=== PATIENT | male | born 1980 | race Two or more races ===

== ENCOUNTER 2020-03-15 15:12 | Emergency (ER) | payer SELFPAY ==
[2020-03-15] MEDS ORDERED: oxyCODONE 5 MG Tab PO ONE (15:16)
[2020-03-15] MEDS ORDERED: Diphtheria,Pertussis(Acell),Tetanus Vaccine 0.5 ML Syringe IM ONE (15:16)
[2020-03-15] MEDS ORDERED: Acetaminophen 500 MG Tab PO ONE (15:16)
[2020-03-15] MEDS ORDERED: Meropenem 1 GM in Sodium Chloride 0.9% 100 ML IV ONE (15:20)
[2020-03-15] MEDS ORDERED: Diphtheria,Pertussis(Acell),Tetanus Vaccine 0.5 ML Syringe ONE (15:20)
--- NOTE | 2020-03-15 15:25 | EDM.PDOC ---
ED HPI GENERAL MEDICAL PROBLEM - General Chief Complaint: Laceration Stated Complaint: SHOT IN LEG WITH NAIL GUN Time Seen by Provider: 03/15/20 15:16 Source of Information: Reports: Patient, Old Records History Limitations: Reports: No Limitations - History of Present Illness INITIAL COMMENTS - FREE TEXT/NARRATIVE: This is a very pleasant 39-year-old male with no past medical history presenting with a puncture injury to the right leg. Approximately 30 minutes prior to arrival, the patient was utilizing a nail gun when he accidentally shot himself in the right anterior leg with a nail. He was able to remove the nail intact. He denies any other injuries. Tetanus immunization status is not up-to-date. No other complaints or injuries. Past medical history: Reviewed, no additional pertinent history. Surgical history: Reviewed in system, no additional pertinent history. Social history: Reviewed in system, no additional pertinent history. Family history: Reviewed in system, no additional pertinent history. PHYSICAL EXAM Vital signs reviewed. Nursing notes reviewed. Constitutional: Awake, alert, non-distressed. Head: Normocephalic, atraumatic. Eyes: EOMI, conjunctiva normal, no discharge, no scleral icterus. Ears, Nose, Throat: External ears and nose normal, moist oral mucosa. Cardiovascular: 2+ right DP and PT pulses, capillary refill less than 2 seconds in the right foot. Pulmonary: normal work of breathing, no accessory muscle use. Abdomen/GI: Soft, nontender, nondistended, no guarding or rigidity, no masses. Musculoskeletal: No deformities. There are 2 puncture wounds to the anterior surface of the right leg, the patient states that the nail was entering 1 of these wounds and exiting the other. Minimal amount of bleeding. Integumentary: Appropriate color for ethnicity, warm, dry, no pallor or jaundice, no rash. Neurologic: Alert, answering questions appropriately, normal speech, no facial droop, moving all extremities well. Sensation intact to light touch in the right foot. Psychiatric: Appropriate mood and affect, normal thought process. This patient was seen and evaluated during the 2019 SARS-CoV-2 novel coronavirus pandemic period. Community viral transmission is ongoing at time of this encounter and the emergency department is operating under pandemic response procedures. Right Leg Pain Score (Numeric/FACES): 6 - Related Data Allergies Allergy/AdvReac Type Severity Reaction Status Date / Time Penicillins Allergy Hives Verified 03/15/20 15:16 Home Meds: Home Meds Acetaminophen [Acetaminophen Extra Strength] 500 - 1,000 mg PO Q6H PRN #30 tablet 03/15/20 [Rx] Doxycycline Hyclate 100 mg PO BID 10 Days #20 tablet. 03/15/20 [Rx] Ibuprofen 400 mg PO Q6H PRN #30 tablet 03/15/20 [Rx] Past Medical History HEENT History: Reports: None Cardiovascular History: Reports: None Respiratory History: Reports: None Gastrointestinal History: Reports: None Genitourinary History: Reports: None Musculoskeletal History: Reports: Other (See Below) Other Musculoskeletal History: broken right tibia Neurological History: Reports: None Psychiatric History: Reports: None Endocrine/Metabolic History: Reports: None Hematologic History: Reports: None Immunologic History: Reports: None Oncologic (Cancer) History: Reports: None Dermatologic History: Reports: None - Past Surgical History Head Surgeries/Procedures: Reports: None HEENT Surgical History: Reports: None Cardiovascular Surgical History: Reports: None Respiratory Surgical History: Reports: None GI Surgical History: Reports: None Male Surgical History: Reports: None Endocrine Surgical History: Reports: None Neurological Surgical History: Reports: None Musculoskeletal Surgical History: Reports: None Oncologic Surgical History: Reports: None Dermatological Surgical History: Reports: None Social & Family History - Family History Family Medical History: No Pertinent Family History - Caffeine Use Caffeine Use: Reports: Coffee ED ROS GENERAL - Review of Systems Review Of Systems: See Below ED EXAM, SKIN/RASH Exam: See Below Course - Vital Signs Text/Narrative:: 39-year-old male presenting with a nail injury to the right lower leg. Neurovascularly intact in the right lower extremity. IV access ordered along with acetaminophen and oxycodone, tetanus booster, x-rays of the right lower leg. We will plan for copious irrigation and a loading dose of IV meropenem given penicillin allergy and need for pseudomonal coverage. Tetanus booster was given and the wound was copiously irrigated with pressure. The patient received 1 g of IV meropenem. We obtained x-rays of the right tibia and fibula, which were concerning for a possible fracture of the anterior diaphysis of the right tibia. Given the presence of the wound, I am concerned that this could be an open fracture so we decided to consult orthopedic surgery. At 4:16 PM I discussed the case with the on-call orthopedic surgeon Dr. Hudson. I discussed my concerns for a possible open fracture of the diaphysis of the right tibia and the mechanism of injury. I reiterated that we had already performed copious irrigation and were giving IV antibiotics. I did discuss whether this would need possible washout in the OR given that they could be an open fracture. Dr. Hudson does not believe the patient needs to go for a washout at this point and recommends bandaging, oral antibiotics (doxycycline), walking boot, crutches, and follow-up in the clinic with him in 2 days time on 03/17/20. The wound was bandaged without closure due to risk of infection (deep puncture injury). Patient is stable to discharge home. Given walking boot and crutches. We will give him instructions about how to change bandaging and we will prescribe him a 10-day course of doxycycline for prophylaxis (patient has a penicillin allergy so we avoided cephalosporins), also sent prescriptions for Tylenol and Motrin. Patient will follow up with the orthopedic surgery clinic in [address] Hudson. Strict emergency department return precautions were provided, patient indicated understanding. All questions were answered prior to departure. Discharged in good condition. DME orders: Right walking boot and crutches. Indication: Right tibial fracture. Duration: 1 month. Last Recorded V/S: Last Vital Signs Temp 36.6 C 03/15/20 15:15 Pulse 80 03/15/20 16:34 Resp 20 03/15/20 16:34 BP 148/29 H 03/15/20 16:34 Pulse Ox 98 03/15/20 16:34 - Orders/Labs/Meds Orders: Active Orders 24 hr Category Date Time Status Vaccines to be Administered [RC] PER UNIT ROUTINE Care 03/15/20 15:16 Active Sodium Chloride 0.9% [Saline Flush] Med 03/15/20 15:26 Active 10 ml FLUSH ASDIRECTED PRN Sodium Chloride 0.9% [Saline Flush] Med 03/15/20 15:26 Active 2.5 ml FLUSH ASDIRECTED PRN DME for Discharge [COMM] Stat Oth 03/15/20 16:18 Ordered Saline Lock Insert [OM.PC] Stat Oth 03/15/20 15:26 Ordered Medication Orders Sodium Chloride (Saline Flush) 10 ml FLUSH ASDIRECTED PRN PRN Reason: Keep Vein Open Last Admin: 03/15/20 15:33 Dose: 10 ml Documented by: ALBERTO Sodium Chloride (Saline Flush) 2.5 ml FLUSH ASDIRECTED PRN PRN Reason: Keep Vein Open Last Admin: 03/15/20 15:33 Dose: 2.5 ml Documented by: ALBERTO Meds: Medications Generic Name Dose Route Start Last Admin Trade Name Freq PRN Reason Stop Dose Admin Sodium Chloride 10 ml 03/15/20 15:26 03/15/20 15:33 Saline Flush FLUSH 10 ml ASDIRECTED PRN Administration Keep Vein Open Sodium Chloride 2.5 ml 03/15/20 15:26 03/15/20 15:33 Saline Flush FLUSH 2.5 ml ASDIRECTED PRN Administration Keep Vein Open Discontinued Medications Generic Name Dose Route Start Last Admin Trade Name Freq PRN Reason Stop Dose Admin Acetaminophen 1,000 mg 03/15/20 15:16 03/15/20 15:21 Tylenol Extra Strength PO 03/15/20 15:17 1,000 mg ONETIME ONE Administration Diphtheria/Tetanus/Acell Pertussis 0.5 ml 03/15/20 15:16 03/15/20 15:32 Boostrix IM 03/15/20 15:17 0.5 ml .ONCE ONE Administration Diphtheria/Tetanus/Acell Pertussis Confirm 03/15/20 15:20 03/15/20 15:34 Adacel Administered 03/15/20 15:21 Not Given Dose 0.5 ml .ROUTE .STK-MED ONE Meropenem/Sodium Chloride 1 gm 50 mls @ 100 mls/hr 03/15/20 16:00 03/15/20 16:05 / Premix IV 03/15/20 16:29 100 mls/hr ONETIME ONE Administration Oxycodone HCl 10 mg 03/15/20 15:16 03/15/20 15:21 Oxycodone PO 03/15/20 15:17 10 mg ONETIME ONE Administration Departure - Departure Time of Disposition: 16:45 Disposition: Home, Self-Care 01 Condition: Good Clinical Impression: Puncture wound of leg excluding thigh Qualifiers: Encounter type: initial encounter Laterality: right Qualified Code(s): S81.831A - Puncture wound without foreign body, right lower leg, initial encounter Right tibial fracture Qualifiers: Encounter type: initial encounter Tibia location: shaft Fracture type: open Open fracture type: open type I or II Fracture morphology: other fracture Qualified Code(s): S82.291B - Other fracture of shaft of right tibia, initial encounter for open fracture type I or II - Discharge Information *PRESCRIPTION DRUG MONITORING PROGRAM REVIEWED*: Not Applicable *COPY OF PRESCRIPTION DRUG MONITORING REPORT IN PATIENT PAMELLA: Not Applicable Prescriptions: Acetaminophen [Acetaminophen Extra Strength] 500 - 1,000 mg PO Q6H PRN #30 tablet PRN Reason: Pain (Mild 1-3) Doxycycline Hyclate 100 mg PO BID 10 Days #20 tablet. Ibuprofen 400 mg PO Q6H PRN #30 tablet PRN Reason: Pain (Mild 1-3) Instructions: Puncture Wound Referrals: [facility] - Orthopaedics [Provider Group] - 2 Days (For follow-up of right leg injury and possible fracture of right tibia.) Forms: ED Department Discharge Additional Instructions: You were seen in the emergency department for a puncture wound to your right leg. It looks like he got the nail out intact. X-rays are concerning for a fracture of your right tibia. We are going to give you a walking boot and crutches and have you follow-up with the orthopedic surgery clinic in [address] Stalin Hudson. You are to be nonweightbearing on your right leg until you are cleared by the orthopedic surgeon. You were given a tetanus immunization booster and IV antibiotics. We are going to discharge you home with a prescription for 10 days of antibiotics, acetaminophen, and ibuprofen for pain. Warning signs to come back to the ER include: Worsening pain, redness, swelling, leakage of pus or fluids, chills, fever of 100.4 degrees or higher, or any other new or concerning symptoms. Please return the emergency department immediately if your symptoms worsen or if you feel worse. Thank you for choosing the [facility] emergency department in [place] for your medical needs today. It was a pleasure caring for you. The following information is given to patients seen in the emergency department who are being discharged. This information is to outline your options for follow-up care. We provide all patients seen in our emergency department with a follow-up referral. The need for follow-up, as well as the timing and circumstances, are variable depending upon the specifics of your emergency department visit. If you don't have a primary care physician on staff, we will provide you with a referral. We always advise you to contact your personal physician following an emergency department visit to inform them of the circumstance of the visit and for follow-up with them and/or the need for any referrals to a consulting specialist. The emergency department will also refer you to a specialist when appropriate. This referral assures that you have the opportunity for follow-up care with a specialist. All of these measure are taken in an effort to provide you with optimal care, which includes your follow-up. Under all circumstances we always encourage you to contact your private physician who remains a resource for coordinating your care. When calling for follow-up care, please make the office aware that this follow-up is from your recent emergency room visit. If for any reason you are refused follow-up, please contact the [facility] Emergency Department at and asked to speak to the emergency department charge nurse. If you do not have a primary care physician that is caring for you, you can contact these clinics below to set up an appointment to establish care: [facility] - Primary Care [address] [place] [id number] [facility] [address] [place] [id number] Sepsis Event Note (ED) - Focused Exam Vital Signs: Vital Signs Temp Pulse Resp BP Pulse Ox 03/15/20 16:34 80 20 148/29 H 98 03/15/20 16:15 79 132/69 98 03/15/20 15:45 83 18 154/81 H 97 03/15/20 15:15 36.6 C 85 20 152/101 H 99 - My Orders Last 24 Hours: My Active Orders 03/15/20 15:16 Vaccines to be Administered [RC] PER UNIT ROUTINE 03/15/20 15:26 Sodium Chloride 0.9% [Saline Flush] 10 ml FLUSH ASDIRECTED PRN Sodium Chloride 0.9% [Saline Flush] 2.5 ml FLUSH ASDIRECTED PRN Saline Lock Insert [OM.PC] Stat 03/15/20 16:18 DME for Discharge [COMM] Stat - Assessment/Plan Last 24 Hours: My Active Orders 03/15/20 15:16 Vaccines to be Administered [RC] PER UNIT ROUTINE 03/15/20 15:26 Sodium Chloride 0.9% [Saline Flush] 10 ml FLUSH ASDIRECTED PRN Sodium Chloride 0.9% [Saline Flush] 2.5 ml FLUSH ASDIRECTED PRN Saline Lock Insert [OM.PC] Stat 03/15/20 16:18 DME for Discharge [COMM] Stat
[2020-03-15] MEDS ORDERED: Sodium Chloride 0.9% 10 ML Syringe FLUSH PRN (15:26)
[2020-03-15] MEDS ORDERED: Sodium Chloride 0.9% 2.5 ML Syringe FLUSH PRN (15:26)
[2020-03-15] MEDS ORDERED: Meropenem Premix 1 GM in Premix Bag 1 BAG IV ONE (16:00)
--- NOTE | 2020-03-15 16:03 | CR ---
Indication: Nail gun injury. Evaluate for foreign body. Technique: Two views of left tibia/fibula Comparison: None available Findings: On the lateral view, at the anterior aspect of the tibia, there is an a age-indeterminate relative lucency identified in the anterior cortex. Callus formation in proximal fibula likely sequela remote injury. Bones are in appropriate alignment. Soft tissues unremarkable. No radiopaque foreign body. Impression: 1. No radiopaque foreign body. 2. Indeterminate lucency and anterior cortex of the mid tibial diaphysis on lateral view could be acute fracture versus sequela of old trauma. Correlate with point tenderness to exclude acute injury. Dictated by Amado Samuels MD @ Mar 15 2020 3:57PM Signed by Dr. Amado Samuels @ Mar 15 2020 4:02PM
== END 2020-03-15 16:35 | disposition home or self-care (01) ==
LOC: MW.ED 15:12
DX: S82.291B Other fracture of shaft of right tibia, initial encounter for open fracture type I or II (principal); Z88.0 Allergy status to penicillin; W29.4XXA Contact with nail gun, initial encounter
CPT/HCPCS: 73590; 90471; 96365; 99283; A9270; J2185

== ENCOUNTER 2020-12-08 14:06 | Emergency (ER) | payer SELFPAY ==
--- NOTE | 2020-12-08 14:56 | EDM.PDOC ---
ED HPI GENERAL MEDICAL PROBLEM - General Chief Complaint: Lower Extremity Injury/Pain Stated Complaint: LFT FOOT PAIN Time Seen by Provider: 12/08/20 14:34 Source of Information: Reports: Patient History Limitations: Reports: No Limitations - History of Present Illness INITIAL COMMENTS - FREE TEXT/NARRATIVE: Patient is a 40-year-old male who presents today for left foot pain. Patient was at the walk-in clinic and had labs and was evaluated and states that they did not give any pain medicine so he came here to receive pain meds. On exam patient has some irritation to the bottom of his foot but has no direct trauma there no swelling or bruising. Patient has no other medical complaints. Left Toe-Hailux Pain Score (Numeric/FACES): 6 - Related Data Allergies Allergy/AdvReac Type Severity Reaction Status Date / Time Penicillins Allergy Hives Verified 12/08/20 14:44 Home Meds: Home Meds Acetaminophen [Acetaminophen Extra Strength] 500 - 1,000 mg PO Q6H PRN #30 tablet 03/15/20 [Rx] Doxycycline Hyclate 100 mg PO BID 10 Days #20 tablet. 03/15/20 [Rx] Ibuprofen 400 mg PO Q6H PRN #30 tablet 03/15/20 [Rx] Past Medical History HEENT History: Reports: None Cardiovascular History: Reports: None Respiratory History: Reports: None Gastrointestinal History: Reports: None Genitourinary History: Reports: None Musculoskeletal History: Reports: Other (See Below) Other Musculoskeletal History: broken right tibia Neurological History: Reports: None Psychiatric History: Reports: None Endocrine/Metabolic History: Reports: None Hematologic History: Reports: None Immunologic History: Reports: None Oncologic (Cancer) History: Reports: None Dermatologic History: Reports: None - Past Surgical History Head Surgeries/Procedures: Reports: None HEENT Surgical History: Reports: None Cardiovascular Surgical History: Reports: None Respiratory Surgical History: Reports: None GI Surgical History: Reports: None Male Surgical History: Reports: None Endocrine Surgical History: Reports: None Neurological Surgical History: Reports: None Musculoskeletal Surgical History: Reports: None Oncologic Surgical History: Reports: None Dermatological Surgical History: Reports: None Social & Family History - Family History Family Medical History: No Pertinent Family History - Caffeine Use Caffeine Use: Reports: None Review of Systems - Review of Systems Review Of Systems: See Below Constitutional: Reports: No Symptoms Eyes: Reports: No Symptoms Ears: Reports: No Symptoms Nose: Reports: No Symptoms Mouth/Throat: Reports: No Symptoms Respiratory: Reports: No Symptoms Cardiovascular: Reports: No Symptoms GI/Abdominal: Reports: No Symptoms Genitourinary: Reports: No Symptoms Musculoskeletal: Reports: Foot Pain Skin: Reports: No Symptoms Neurological: Reports: No Symptoms Psychiatric: Reports: No Symptoms ED EXAM, GENERAL - Physical Exam Exam: See Below Exam Limited By: No Limitations General Appearance: Alert, WD/WN, No Apparent Distress Respiratory/Chest: No Respiratory Distress, Lungs Clear Extremities: Normal Inspection, Normal Range of Motion, Non-Tender, No Pedal Edema, Normal Capillary Refill Neurological: Alert, Oriented, Normal Cognition, Normal Gait Course - Vital Signs Last Recorded V/S: Last Vital Signs Temp 98.6 F 12/08/20 14:38 Pulse 73 12/08/20 14:38 Resp 18 12/08/20 14:38 BP 122/89 12/08/20 14:38 Pulse Ox 97 12/08/20 14:38 Departure - Departure Time of Disposition: 14:55 Disposition: Home, Self-Care 01 Condition: Good Clinical Impression: Foot pain - Discharge Information *PRESCRIPTION DRUG MONITORING PROGRAM REVIEWED*: Not Applicable *COPY OF PRESCRIPTION DRUG MONITORING REPORT IN PATIENT PAMELLA: Not Applicable Instructions: Foot Pain Referrals: PCP,None [Primary Care Provider] - Additional Instructions: The following information is given to patients seen in the emergency department who are being discharged to home. This information is to outline your options for follow-up care. We provide all patients seen in our emergency department with a follow-up referral. The need for follow-up, as well as the timing and circumstances, are variable depending upon the specifics of your emergency department visit. If you don't have a primary care physician on staff, we will provide you with a referral. We always advise you to contact your personal physician following an emergency department visit to inform them of the circumstance of the visit and for follow-up with them and/or the need for any referrals to a consulting specialist. The emergency department will also refer you to a specialist when appropriate. This referral assures that you have the opportunity for follow-up care with a specialist. All of these measure are taken in an effort to provide you with optimal care, which includes your follow-up. Under all circumstances we always encourage you to contact your private physician who remains a resource for coordinating your care. When calling for follow-up care, please make the office aware that this follow-up is from your recent emergency room visit. If for any reason you are refused follow-up, please contact the [facility] Emergency Department at and asked to speak to the emergency department charge nurse. Please follow up with your primary care physician. If you do not have a primary care physician, see below: [facility] [address] [place] [id number] [facility] [address] [place] [address] You are seen today for foot pain. There are no injuries to the foot. We recommend you follow-up with your primary care physician and take Motrin and Tylenol for the pain as needed if you have any other concerning signs or symptoms please return to the ED. Sepsis Event Note (ED) - Focused Exam Vital Signs: Vital Signs Temp Pulse Resp BP Pulse Ox 12/08/20 14:38 98.6 F 73 18 122/89 97 - Assessment/Plan Plan: Is a 40-year-old male who came in today requesting pain meds for his foot. On exam there is no signs of trauma no swelling or bruising he does have also some skin irritation from his boot. Patient will be instructed to take Motrin Tylenol as needed for pain and to continue to follow-up.
== END 2020-12-08 15:00 | disposition home or self-care (01) ==
LOC: MW.ED 14:06
DX: M79.672 Pain in left foot (principal); Z88.0 Allergy status to penicillin
CPT/HCPCS: 99283

== ENCOUNTER 2022-01-12 13:44 | Emergency (ER) | payer SELFPAY ==
[2022-01-12] MEDS ORDERED: Ketorolac 30 MG/ML SDV IM ONE (15:59)
== END 2022-01-12 17:08 | disposition home or self-care (01) ==
LOC: MW.ED 13:44
DX: R51.9 Headache, unspecified (principal); Z88.0 Allergy status to penicillin
CPT/HCPCS: 70450; 96372; 99284; J1885; 99283